=== PATIENT | male | born 1960 | race Caucasian/White ===

== ENCOUNTER 2016-08-06 06:13 | Day surgery (SDC) | payer OTHER ==
[~2016-08-06] VITALS: Ht 172.7 cm; Wt 66.0 kg
[2016-08-06] MEDS ORDERED: HYDR-3516 PO (06:59)
[2016-08-06 07:03] VITALS: BP 120/76; PULSE 65; RESP 20; TEMP 97.8; O2SAT 95
[2016-08-06 07:28] LABS: AUTOMATED NEUTROPHIL # 6.3 TH/MM3 (1.8-7.7); BASOPHIL % 0.5 % (0.0-2.0); EOSINOPHIL # 0.2 TH/MM3 (0-0.4); EOSINOPHIL % 1.9 % (0.0-4.0); HEMATOCRIT 40.2 % (39.0-51.0); HEMO FLAGS DIFF FINAL; LYMPH % 18.5 % (9.0-44.0); LYMPHOCYTE # 1.6 TH/MM3 (1.0-4.8); MEAN CELL VOLUME 89.5 FL (80.0-100.0); MEAN CORPUSCULAR HEMOGLOBIN 31.3 PG (27.0-34.0); MONO % 7.6 % (0.0-8.0); NEUT % 71.5 % (16.0-70.0); PLATELET COUNT 167 TH/MM3 (150-450); RED BLOOD COUNT 4.49 MIL/MM3 (4.50-5.90); RED CELL DISTRIBUTION WIDTH 12.7 % (11.6-17.2); WHITE BLOOD COUNT 8.8 TH/MM3 (4.0-11.0)
[2016-08-06] MEDS ORDERED: VANCOMYCIN 1000 MG/NS 250 ML - implanted port/tunneled catheter IV SCH ×2 (07:30)
[2016-08-06] MEDS ORDERED: SODIUM CHLORIDE 0.9% 1000 ML IV SCH (07:30)
[2016-08-06] MEDS ORDERED: CHLORHEXIDINE GLUCONATE 2 % 1 PACK (2 CLOTHS) TOPICAL SCH (07:30)
[2016-08-06] MEDS ORDERED: POVIDONE IODINE 5% (ANTISEPSIS KIT) 4 APPLICATIONS EACH NARE SCH (07:30)
[2016-08-06] MEDS ORDERED: ceFAZolin 2 GM PREMIX 50 ML - implanted port/tunneled catheter insertion IV SCH (07:30)
[2016-08-06 07:36] LABS: APTT (PATIENT) 30.8 SEC (24.3-30.1); INTERNATIONAL NORMALIZED RATIO 1.1 RATIO
[2016-08-06] MEDS ORDERED: fentaNYL CITRATE 250 MCG/5 ML AMP ONE (08:16)
[2016-08-06] MEDS ORDERED: MIDAZOLAM HCL 5 MG/5 ML VIAL ONE (08:16)
[2016-08-06] MEDS ORDERED: LIDOCAINE 1%/EPINEPHrine 1:100,000 SOLN 20 ML VIAL ONE (08:38)
[2016-08-06] MEDS ORDERED: SODIUM CHLORIDE 0.9% FLUSH 10 ML FLUSH IVF PRN (09:30)
[2016-08-06 09:40] VITALS: BP 90/54; PULSE 77; RESP 18; TEMP 97.4; O2SAT 92
[2016-08-06 09:55] VITALS: BP 101/53; PULSE 77; RESP 18; O2SAT 94
--- NOTE | 2016-08-06 10:14 | PD.RAD ---
Post Procedure Progress Note Pre Procedure Diagnosis: (1) Pancreatic cancer Post Procedure Diagnosis: (1) Pancreatic cancer Procedure Date: Aug 06, 2016 Supervising Radiologist: Remi Jaimes Proceduralist/Assist: Ivonne Degroot RT(R)(CV), RT Dottie(R)() Anesthesia: Local, Analgesia, Conscious Sedation Plan of Activity Patient to Unit: ROPU Patient Condition: Good See PACS Report for procedural detail/treatment Central Venous Access Device Procedure 1 Right Internal Jugular Infusaport Placement single lumen [place]: 8 Remi Jaimes MD Aug 06, 2016 10:14
[2016-08-06 10:25] VITALS: BP 98/62; PULSE 64; RESP 18; O2SAT 93
[2016-08-06 10:55] VITALS: BP 100/57; PULSE 61; RESP 18; O2SAT 94
--- NOTE | 2016-08-06 12:28 | RADRPT ---
EXAM DATE/TIME: 08/06/2016 09:09 [facility] COMPARISON: No previous studies available for comparison. 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 MEDICAL HISTORY : 1.Pancreatic head adenocarcinoma 2.Current smoker SURGICAL HISTORY : 1.ERCP 2.EUS 3.Hernia repair 4.Left hip surgery in 2012 ENCOUNTER: Initial ACUITY: 2 months PAIN SCORE: 0/10 FLUORO TIME: 0.8 minutes IMAGE SERIES: 1 SEDATION TIME: 30 minutes ACCESS: Right internal jugular vein SEDATION: 1.) 4 mg midazolam (Versed) IV 2.) 200 mcg fentanyl (Sublimaze) IV Prophylactic antibiotics were administered with appropriate pre-procedure timing. Vancomycin within 2 hours of procedure, Ancef (or alternative) within 1 hour of procedure. DEVICE: 1. 8 [place] single lumen Bard Power Port PROCEDURE : 1. Continuous pulse oximetry and EKG monitoring. 2. Intravenous conscious sedation. 3. Ultrasound guidance for venous access. 4. Fluoroscopic guided implantable central venous port placement. The patient was placed supine. The neck was prepped in sterile fashion. Full sterile technique was u sed, including cap, mask, sterile gloves and gown, and a large sterile sheet. Hand hygiene and 2% ch lorhexidine Betadine was utilized per protocol for cutaneous antisepsis with appropriate dry time for site. The skin and subcutaneous tissues were infiltrated with local anesthetic solution. Under direct ultrasound guidance, central venous access was accomplished in the targeted vessel. The ultrasound images depicting access guidance were stored and saved to PACS for permanent record. A s ubcutaneous pocket was created using blunt dissection. The port was introduced to the pocket. The c atheter tubing was fed through a subcutaneous tunnel to the venotomy site. The catheter tubing was c ut to a suitable length and then was introduced through a valved Peel-Away sheath and positioned with catheter tubing tip at the cavo-atrial junction level. The pocket incision was closed with subcutic ular Vicryl suture. Steri-Strips were applied. The port was flushed and locked with heparin solutio n per protocol. Sterile dressing was applied to the site. The patient tolerated the procedure well. Conscious sedation was performed with the prescribed dosages and duration as above in the presence of an independent trained radiology nurse to assist in the monitoring of the patient. EKG and oximetry remained stable throughout the procedure. The patient tolerated the procedure well and there were no complications. The patient was sent to post anesthesia recovery in stable condition. CONCLUSION: Uncomplicated ultrasound and fluoroscopic guided implanted central venous port catheter placement as described in detail above. An 8 [place] Power port was placed. Remi Jaimes MD on August 06, 2016 at 12:26 Board Certified Radiologist. This report was verified electronically.
== END 2016-08-06 11:35 | disposition home or self-care (01) ==
LOC: HROP 06:13 → HRIP 06:39 → HROP 11:35
PROVIDERS: ATTEND Internal Medicine Hematology & Oncology
DX: C25.0 Malignant neoplasm of head of pancreas (principal); F17.210 Nicotine dependence, cigarettes, uncomplicated
CPT/HCPCS: 36561; 76937; 77001; 85025; 85610; 85730; 99152; 99153; C1788; J0690; J1642; J2250; J3010; J3370; J7030; J7050